=== PATIENT | male | born 1995 | race Caucasian/White ===

== ENCOUNTER 2020-11-24 07:05 | Inpatient (IN) | payer MEDICAID, OTHER ==
[~2020-11-24] VITALS: Ht 188 cm; Wt 103.3 kg
[2020-11-24 07:50] LABS: BASOPHILS % (AUTO) 0.2 % (0.0-2.0); EOSINOPHILS % (AUTO) 1.7 % (1.0-6.0); HEMATOCRIT 44.9 % (41-53); HEMOGLOBIN 15.4 g/dL (13.5-17.5); LYMPHOCYTES # (AUTO) 1.9 K/uL (1.0-4.8); MEAN CORPUSCULAR HEMOGLOBIN 31.8 pg (26.0-34.0); MEAN CORPUSCULAR HGB CONC 34.4 G/dL (31.0-37.0); MEAN CORPUSCULAR VOLUME 92 fL (80-100); MONOCYTES # (AUTO) 0.8 K/uL (0.1-1.0); MONOCYTES % (AUTO) 10.4 % (2.0-9.0); NEUTROPHILS % (AUTO) 63.7 % (40.0-70.0); PLATELET COUNT (AUTO) 278 K/uL (150-450); RED BLOOD CELL COUNT(AUTO) 4.86 MIL/uL (4.50-5.90); RED CELL DISTRIBUTION WIDTH 13.6 % (11.5-14.5)
[2020-11-24 08:01] LABS: ANION GAP 9 mmol/L (8-16); CALCIUM, TOTAL 9.3 mg/dL (8.8-10.5); CARBON DIOXIDE 29 mmol/L (22-29); CHLORIDE 100 mmol/L (98-107); CREATININE 0.96 mg/dL (0.60-1.30); GLOMERULAR FILTR. RATE CALC > 60 mL/min (>60); GLUCOSE,RANDOM 80 mg/dL (70-110); POTASSIUM 3.7 mmol/L (3.5-5.1); SODIUM SERUM 138 mmol/L (136-145); UREA NITROGEN, BLOOD 13 mg/dL (7-18)
[2020-11-24 08:06] LABS: ALANINE AMINOTRANSFERASE 41 U/L (12-78); ALBUMIN 4.4 g/dL (3.4-5.0); ALKALINE PHOSPHATASE 55 U/L (46-116); ASPARTATE AMINOTRANSFERASE 21 U/L (15-37); BILIRUBIN,TOTAL 0.6 mg/dL (0.1-1.0); TOTAL PROTEIN, SERUM 8.1 g/dL (6.4-8.2)
[2020-11-24 08:41] LABS: COVID AG,FIA SOURCE NASOPHARYNGEAL
[2020-11-24] MEDS ORDERED: LORazepam 2 MG TABLET PO PRN (10:30)
[2020-11-24] MEDS ORDERED: HALOPERIDOL 5 MG TABLET PO PRN (10:30)
[2020-11-24] MEDS ORDERED: LORazepam 2 MG/ML VIAL IVP ONE (11:00)
[2020-11-24] MEDS ORDERED: ESCI5TAB16 PO (11:25)
[2020-11-24 12:54] VITALS: BP 100/59
[2020-11-24 16:30] VITALS: BP 123/60
[2020-11-24] MEDS: NICOTINE 7 MG/24 HOUR PATCH TD SCH (20:19)
[2020-11-24] MEDS: RisperiDONE 1 MG TABLET PO SCH (20:19)
[2020-11-24] MEDS: ZOLPIDEM TARTRATE 10 MG TABLET PO PRN (22:14)
[2020-11-25 06:45] LABS: CHOL/HDL RATIO 4.6 (4.2-7.3)
[2020-11-25 08:00] VITALS: BP 141/79
[2020-11-25] MEDS: ESCITALOPRAM OXALATE 10 MG TABLET PO SCH (09:11)
[2020-11-25] MEDS: NICOTINE 7 MG/24 HOUR PATCH TD SCH (09:12)
[2020-11-25] MEDS ORDERED: CloNIDine HCL 0.1 MG TABLET PO PRN (09:45)
[2020-11-25] MEDS ORDERED: PETROLATUM,WHITE 28 GM JELLY TP PRN (09:45)
[2020-11-25] MEDS ORDERED: NICOTINE 14 MG/24 HOUR PATCH TD PRN (09:45)
[2020-11-25] MEDS ORDERED: ALBUTEROL SULFATE HFA 90 MCG/PUFF 8 GM INHALER IH PRN (09:45)
[2020-11-25] MEDS ORDERED: MAG HYDROX/AL HYDROX/SIMETH ES 30 ML SUSPENSION UDCUP PO PRN (09:45)
[2020-11-25] MEDS ORDERED: MAGNESIUM HYDROXIDE SUSPENSION 30 ML UDCUP PO PRN (09:45)
[2020-11-25] MEDS ORDERED: IBUPROFEN 400 MG TABLET PO PRN (09:45)
[2020-11-25] MEDS ORDERED: ONDANSETRON HCL 4 MG TABLET PO PRN (09:45)
[2020-11-25] MEDS ORDERED: DOCUSATE SODIUM 100 MG CAPSULE PO PRN (09:45)
[2020-11-25] MEDS ORDERED: GuaiFENesin/D-METHORPHAN [SUGAR-FREE] 200-20MG/10 ML SYRUP UDCUP PO PRN (09:45)
[2020-11-25] MEDS ORDERED: ACETAMINOPHEN 325 MG TABLET PO PRN (09:45)
[2020-11-25] MEDS ORDERED: LOPERAMIDE HCL 2 MG CAPSULE PO PRN (09:45)
[2020-11-25 16:48] VITALS: BP 111/72
[2020-11-25] MEDS: RisperiDONE 1 MG TABLET PO SCH (20:14)
[2020-11-25] MEDS: ZOLPIDEM TARTRATE 10 MG TABLET PO PRN (22:31)
[2020-11-26 09:10] VITALS: BP 110/66
[2020-11-26] MEDS: ESCITALOPRAM OXALATE 10 MG TABLET PO SCH (10:11)
[2020-11-26] MEDS: NICOTINE 7 MG/24 HOUR PATCH TD SCH (10:12)
[2020-11-26 16:00] VITALS: BP 122/66
[2020-11-26] MEDS: RisperiDONE 1 MG TABLET PO SCH (20:12)
[2020-11-26] MEDS: ZOLPIDEM TARTRATE 10 MG TABLET PO PRN (21:56)
[2020-11-27] MEDS: ESCITALOPRAM OXALATE 10 MG TABLET PO SCH (08:06)
[2020-11-27] MEDS: NICOTINE 7 MG/24 HOUR PATCH TD SCH (08:07)
[2020-11-27 08:48] VITALS: BP 135/88
[2020-11-27] MEDS ORDERED: RISP1TAB89 PO (12:29)
[2020-11-27] MEDS ORDERED: ESCI10 PO (12:29)
== END 2020-11-27 14:10 | disposition home or self-care (01) | DRG 750 ==
LOC: EMS 07:06 → EDSEX 07:06 → 3EI 10:39
DX: F25.1 Schizoaffective disorder, depressive type (principal); R45.851 Suicidal ideations; F17.200 Nicotine dependence, unspecified, uncomplicated; F14.10 Cocaine abuse, uncomplicated; Z20.822 Contact with and (suspected) exposure to COVID-19; F12.90 Cannabis use, unspecified, uncomplicated; F13.10 Sedative, hypnotic or anxiolytic abuse, uncomplicated; F15.90 Other stimulant use, unspecified, uncomplicated; Z79.899 Other long term (current) drug therapy
CPT/HCPCS: 80053; 80061; 85025; 99285; G0480

== ENCOUNTER 2021-04-17 02:53 | Emergency (ER) | payer MEDICAID, OTHER ==
[~2021-04-17 02:53] MED LIST: ESCI10 PO; RISP1TAB89 PO
== END 2021-04-17 04:26 ==
LOC: EMS 02:54
DX: S50.812A Abrasion of left forearm, initial encounter (principal); F32.9 Major depressive disorder, single episode, unspecified; F15.90 Other stimulant use, unspecified, uncomplicated; F11.90 Opioid use, unspecified, uncomplicated; F12.90 Cannabis use, unspecified, uncomplicated; F17.210 Nicotine dependence, cigarettes, uncomplicated; Z79.899 Other long term (current) drug therapy; Z88.8 Allergy status to other drugs, medicaments and biological substances; X78.8XXA Intentional self-harm by other sharp object, initial encounter; Y93.89 Activity, other specified; Y92.89 Other specified places as the place of occurrence of the external cause; Y99.8 Other external cause status
CPT/HCPCS: 99283